=== PATIENT | male | born 1965 | race Caucasian/White ===

== ENCOUNTER → 2018-07-04 14:52 | Outpatient (CLI) | payer MEDICAID, SELFPAY ==
[2018-07-04 15:37] LABS: Anion Gap 15.2 mEq/L (5-15); Blood Urea Nitrogen 20 mg/dL (7-18); Carbon Dioxide 24 mmol/L (21.0-32.0); Chloride 102 mmol/L (98-107); Creatinine,Serum 1.16 mg/dL (0.70-1.30); Estimated Glomerular Filt Rate 66 ml/min (>60); Free T4 (Free Thyroxine) 0.94 ng/dl (0.76-1.46); GFR (African American) 80 ML/MIN (>60); Glucose 126 mg/dL (74-106); Potassium 4.2 mmoL/L (3.5-5.1); Sodium 137 mmol/L (136-145)
[2018-07-04 15:38] LABS: Hemoglobin A1C 5.5 % (0.0-7.0)
== END ==
PROVIDERS: Visit Provider Emergency Medicine
DX: Z87.898 Personal history of other specified conditions (principal)
CPT/HCPCS: 80048; 83036; 84439; 84443

== ENCOUNTER → 2018-07-06 11:21 | Outpatient (CLI) | payer MEDICAID, SELFPAY ==
--- NOTE | 2018-07-06 11:23 | NM_ITS ---
History and Indications: Diabetes, tobacco use, family history, chest pain, shortness of breath and syncope Procedure: Agent exercised on Arvin protocol 9 minutes and 31 seconds, resting heart rate was 73 bpm resting pressure 125/82, with exercise maximum heart rate achieved was 1 minute which is equal to 85% of the maximum predicted heart rate and a blood pressure was 172/80. Test was started due to fatigue and shortness of breath patient denied any complained of chest pain. Patient has good exercise capacity achieved 10.1METS of workload on treadmill, the blood pressure response to exercise was adequate. Electrocardiogram: Single electrocardiogram showed sinus rhythm, with exercise there is less than 1.[address] segment depression noted from the baseline EKG, occasional premature ventricular complex present. The EKG portion of the exercise Myoview is negative for ischemia. Cardiac stress and resting SPECT images: Cardiac stress and resting SPECT images were obtained using technetium 99 Myoview 31.1 mCi stress and the 10.5 mCi at rest. Gated SPECT further analysis of segmental wall motion and calculation of the ejection fraction also done. Cardiac stress and rest SPECT images show activity without segmental perfusion abnormality, computer derived ejection fraction is 66% with no regional wall motion abnormality, right ventricle is normal size and contractility. Conclusion: 1. The EKG portion of the exercise Myoview is negative for ischemia, patient has good exercise capacity achieved 10.1mets of workload on treadmill, the blood pressure response to exercise was adequate, there was no exercise-induced chest discomfort. 2. No scintigraphic evidence of reversible ischemia seen, computer derived ejection fraction is 66% with no regional wall motion abnormality, right ventricle is normal size and contractility. 3. Normal exercise Myoview study.
== END ==
PROVIDERS: PCP Emergency Medicine; Visit Provider Emergency Medicine
DX: R07.9 Chest pain, unspecified (principal)
CPT/HCPCS: 78452; 93017; A9502

== ENCOUNTER 2021-01-17 10:44 | Emergency (ER) | payer OTHER, SELFPAY ==
[2021-01-17 10:45] VITALS: BP 120/85; PULSE 102; RESP 18; TEMP 36.9; O2SAT 97; BMI 26.5
[2021-01-17 12:15] VITALS: BP 134/71; PULSE 76; RESP 18; TEMP 36.8; O2SAT 98
--- NOTE | 2021-01-17 12:27 | HMH.EDUTC ---
[facility] [place] Disposition Clinical Impression: Diarrhea Qualifiers: Diarrhea type: unspecified type Qualified Code(s): R19.7 - Diarrhea, unspecified Disposition: Home, Self-Care Condition on Discharge: Good Instructions: DI for Diarrhea and Traveler's Diarrhea -- Adult Additional Instructions: You have been tested for COVID19. Please isolate yourself as if you are positive until test results received. Tylenol and Motrin for body aches. Clear liquids, bland diet for diarrhea. Prescriptions: Promethazine HCl 12.5 mg PO TID 5 Days #10 tab Transmission Status: Pending to [facility] [employer] #[id number] Referrals: Humera Duran [Primary Care Provider] - Time of Disposition: 12:33 Medical Decision Making - Polo Inquiry Pt receiving controlled substance: No Vital Signs: 01/17/21 10:45 Temperature 98.4 F Temperature Source Oral Pulse Rate [Right] 102 H Respiratory Rate 18 Blood Pressure [Right Arm] 120/85 Blood Pressure Mean [Right Arm] 96 02 Sat by Pulse Oximetry 97 Oxygen Delivery Method Room Air Orders (Tests/Meds): ORDERS Category Date Time Status Covid-19 Nasal PCR ([facility]) Routine Lab 01/17/21 11:56 Received [facility] [place] HPI - General Stated complaint: body aches,diarrhea Time Seen by Provider: 01/17/21 12:27 Mode of Arrival: Family Vehicle Source of Information: Patient Limitations: No Limitations Description of Symptoms (Recalled from Triage Doc. by RN): Patient c/o dairrhea, chills, body aches, dizziness and general mylagia. patient since yesterday. Patient denies fevers, N/V. Pt denies any known COVID exposure. HEENT Symptoms (Recalled from RN notes): No Resp Symptoms (Recalled from RN notes): No Skin Symptoms (Recalled from RN notes): No MS Symptoms (Recalled from RN notes): Yes (GENERAL MYLAGIA) Functional Status (Recalled from RN notes): na - History of Present Illness Provider Complaint: Dizziness, body aches, chills, diarrhea X 1 day. No fever. Denies congestion, ear pain, sore throat. No loss of taste or smell. No nausea or vomiting. No known COVID19 exposure Onset (ago): day(s) (1) Relieving factors: none Exacerbating factors: none Treatments prior to arrival: none - Related Data Home Medications Medication Instructions Recorded Confirmed omeprazole magnesium 20 mg 20 mg PO DAILY 07/04/18 07/10/19 tablet,delayed release Previous Rx's Medication Instructions Recorded Promethazine HCl 12.5 mg PO TID 5 Days #10 tab 01/17/21 Allergies Allergy/AdvReac Type Severity Reaction Status Date / Time No Known Allergies Allergy Verified 07/10/19 09:06 - Worker's Comp Is this a Worker's Comp case?: No Is this an [facility] Worker's Comp?: No Is this a [place] Worker's Comp?: No [facility] History - Hepatitis A Screen Drug use history?: No High risk sexual behaviors?: No History of sexually transmitted infection?: No Currently employed?: No Childcare worker?: No Do you have indoor plumbing?: Yes Do you have electricity?: Yes Attestation statement:: This patient has been screened for Hepatitis A risk factors. I have reviewed the patient's past medical history: Yes Medical History: Reports:: Anxiety, Gastroesophageal Reflux Disease(GERD) Denies:: Cancer, Diabetes Mellitus Type 1, Diabetes Mellitus Type 2, Internal Pacemaker, Lung Disease, MRSA, Seizures Laterality Cases: Left: Arthroscopy Knee Other Surgeries: Yes: Colonoscopy, Other. No: Pacemaker Amputation: No Fractures: Yes Comment: right hand, lt knee - Social History Smoking Status: Current some day smoker # Packs/Day (cigarettes): 1 Alcohol Intake: never Alcohol Intake Frequency:: a few times a week Substance Use Type: denies use Occupational Status: employed Housing: house Household Members: spouse - Psychiatric History Pschychiatric History:: Reports:: Anxiety Family Hx:: Diabetes, Stroke, Hyperlipidemia ROS Obtained: Yes All systems reviewed & no additional complaints - Constitutional Constitutional: Rep
== END 2021-01-17 12:37 | disposition home or self-care (01) ==
PROVIDERS: Emergency Provider Physician Assistant; PCP Nurse Practitioner Family
DX: R19.7 Diarrhea, unspecified (principal); R42 Dizziness and giddiness; K21.9 Gastro-esophageal reflux disease without esophagitis; F41.9 Anxiety disorder, unspecified
CPT/HCPCS: 99202; G0463; U0003

== ENCOUNTER 2021-02-09 08:00 | Outpatient (RCR) | payer OTHER, SELFPAY | END 2021-03-24 15:00 | disposition home or self-care (01) | LOC: PT.CARL 08:00 | PROVIDERS: PCP Nurse Practitioner Family; Visit Provider Nurse Practitioner Family | DX: R42 Dizziness and giddiness (principal) | CPT/HCPCS: 97110; 97140; 97163 ==

== ENCOUNTER → 2021-02-17 07:13 | Day surgery (SDC) | payer OTHER, SELFPAY ==
--- NOTE | 2021-02-17 09:56 | HMH.TILT ---
Findings:: PROCEDURE: Upright Tilt Table Test REQUESTING PHYSICIAN: Courtney Key APRN INDICATION: Recurrent vertigo, dizziness BETA BLOCKERS: None PRE-TEST VITAL SIGNS: (supine position) HR 71 and regular, BP 138/70, O2sat 99% PROCEDURE SUMMARY: Patient was prepped per protocol, IV started, connected to heart, blood pressure and sat monitors, and safety strap applied. He was then tilted upright at 70 degrees for a total of 35 minutes. He denied any symptoms and had only minimal fluctuations in heart rate and blood pressure during the test. Minimum HR was 68 bpm, recorded 5 minutes after tilted upright and the maximum was 81 bpm, recorded after 15 minutes upright. Heart rhythm was normal sinus throughout. Minimum SBP was 126 mmHg, occurring after 25 minutes upright, and the maximum SBP was 136, occurring after 15 minutes upright. Minumum DBP was 92 mmHg after 5 minutes upright and the maximum DBP was 101 after 30 minutes upright. O2 sats were in the high-90s throughout. CONCLUSIONS: Unremarkable upright tilt table test. Incidental finding of elevated diastolic blood pressure when in the upright position.
== END ==
PROVIDERS: PCP Nurse Practitioner Family; Visit Provider Nurse Practitioner Family
DX: R42 Dizziness and giddiness (principal); I45.10 Unspecified right bundle-branch block; R94.31 Abnormal electrocardiogram [ECG] [EKG]
CPT/HCPCS: 93660

== ENCOUNTER → 2021-02-19 08:30 | Outpatient (CLI) | payer OTHER, SELFPAY ==
--- NOTE | 2021-02-19 08:30 | MR_ITS ---
PROCEDURE: MR ANGIO HEAD WO CON CLINICAL INDICATION: dizziness, eval posterior circulation COMPARISON: No exams were available for comparison TECHNIQUE: 3D [id number] images obtained without contrast with multi slab reformats FINDINGS: The posterior circulation has an unremarkable appearance. Vertebral arteries and basilar artery has an unremarkable appearance. No aneurysm.. The anterior circulation also has an unremarkable appearance without evidence of aneurysm. No AVM apparent. The no areas of dissection. No major intracranial occlusive process apparent IMPRESSION: Negative MRA of the brain Dictated by: Nicolas Camargo MD 02/19/2021 15:34 Nicolas Camargo MD in [place] 02/19/2021 15:34
== END ==
PROVIDERS: PCP Nurse Practitioner Family; Visit Provider Nurse Practitioner Family
DX: R42 Dizziness and giddiness (principal)
CPT/HCPCS: 70544

== ENCOUNTER → 2021-02-24 09:25 | Outpatient (CLI) | payer OTHER, SELFPAY ==
--- NOTE | 2021-02-24 09:35 | XR_ITS ---
PROCEDURE: XR CERVICAL SPINE W FLEX/EXT CLINICAL INDICATION: neck pain, brisk reflexes COMPARISON: No exams were available for comparison FINDINGS: There is normal alignment. There is reversal of the upper cervical lordosis. There is slight decrease in the disc space at C4-C5. Nuchal ligament calcifications are present posteriorly at the C5 level. There is some minimal anterior longitudinal ligament calcification also noted. No acute fracture or dislocation. No lytic or blastic change. Minimal foraminal narrowing bilaterally at C4-C5. No cervical rib. Flexion and extension views show no abnormal subluxation. IMPRESSION: Mild degenerative disc disease at C4-C5 with minimal bilateral foraminal narrowing. Reversal cervical lordosis which may be due to patient positioning or muscle spasm No abnormal subluxation in flexion or extension Dictated by: Nicolas Camargo MD 02/24/2021 14:47 Nicolas Camargo MD in [place] 02/24/2021 14:47
[2021-02-24 09:43] LABS: Basophils % 0.6 % (0.1-2.0); Eosinophils # 0.2 K/mm3 (0.0-0.4); Eosinophils % 2.7 % (0.1-12.0); Hematocrit 44.8 % (42.0-52.0); Hemoglobin 15.1 g/dL (14.1-18.0); Lymphocytes # 1.7 K/mm3 (0.7-4.5); Lymphocytes % 25.4 % (10-50); Mean Corpuscular HGB Conc 33.7 g/dL (31.8-35.4); Mean Corpuscular Hemoglobin 30.8 pg (27.0-31.2); Mean Corpuscular Volume 91.3 fl (80-94); Mean Platelet Volume 7.9 fl (7.4-10.4); Monocytes # 0.4 K/mm3 (0.1-1.0); Monocytes % 6.6 % (1.7-9.3); Neutrophils # 4.3 K/mm3 (1.8-7.8); Neutrophils % 64.7 % (37.0-80.0); Platelet Count 214 K/mm3 (142-424); Red Blood Count 4.91 M/mm3 (4.60-6.20); Red Cell Distribution Width 12.6 % (11.5-17.5); White Blood Count 6.6 K/mm3 (4.8-10.8)
--- NOTE | 2021-02-24 10:09 | ECG_ITS ---
APPROVED REPORT Exam: Resting ECG HR:69 bpm ECG Measurements Heart Rate 69 AXES OR 134 P 37 QRSd 126 QRS 27 QT 382 T 14 QTc 409 Conclusion Normal sinus rhythm Right bundle branch block Abnormal ECG Electronically signed by : Cralos Hodge MD 02/24/2021 17:43:17
[2021-02-24 10:45] LABS: Alanine Aminotransferase 26 U/L (12-78); Albumin/Globulin Ratio 1.5 (1.1-1.8); Alkaline Phosphatase 81 U/L (38-126); Anion Gap 13.5 mEq/L (5-15); Aspartate Amino Transferase 23 U/L (17-59); Bilirubin,Total 0.2 mg/dl (0.2-1.3); Blood Urea Nitrogen 15 mg/dl (9-20); Calcium 8.9 mg/dl (8.4-10.2); Carbon Dioxide 25 mmol/L (22.0-30.0); Chloride 108 mmol/L (98-107); Estimated Glomerular Filt Rate 78 ml/min (>60); GFR (African American) 94 ML/MIN (>60); Globulin 2.6 g/dL (1.3-3.2); Glucose 114 mg/dl (74-100); Potassium 4.5 mmoL/L (3.5-5.1); Sodium 142 mmol/L (136-145); Total Protein,Serum 6.6 g/dl (6.3-8.2)
[2021-02-24 11:17] LABS: Thyroid Stimulating Hormone 0.07 uIU/mL (0.465-4.68)
[2021-02-24 11:51] LABS: Vitamin B12 356 pg/mL (239-931)
== END ==
PROVIDERS: Visit Provider Nurse Practitioner Family
DX: R42 Dizziness and giddiness (principal); M54.2 Cervicalgia; R29.2 Abnormal reflex
CPT/HCPCS: 36415; 72052; 80053; 82607; 82746; 84443; 85025; 93005

== ENCOUNTER → 2021-03-10 08:35 | Outpatient (CLI) | payer OTHER, SELFPAY ==
[2021-03-10 10:30] LABS: Free Thyroxine Index 2.1 ug/dL (5.93-13.13); T4 (Thyroxine) 6.7 ug/dl (5.53-11.0); Triiodothryronine (T3) Uptake 32 % (23.5-40.5)
[2021-03-10 10:44] LABS: Thyroid Stimulating Hormone 0.29 uIU/mL (0.465-4.68)
[2021-03-10 10:45] LABS: Hemoglobin A1C 5.4 % (4.0-6.0)
[2021-03-11 05:15] LABS: Homocyst(e)ine 15.4 umol/L (0.0-14.5)
[2021-03-16 16:18] LABS: Methylmalonic Acid 120 nmol/L (0-378)
== END ==
PROVIDERS: PCP Nurse Practitioner Family; Visit Provider Nurse Practitioner Family
DX: R42 Dizziness and giddiness (principal); R29.2 Abnormal reflex; R73.9 Hyperglycemia, unspecified; I45.4 Nonspecific intraventricular block; R79.89 Other specified abnormal findings of blood chemistry
CPT/HCPCS: 36415; 82131; 83036; 83090; 84436; 84443; 84479; 93270

== ENCOUNTER → 2021-03-19 08:31 | Outpatient (CLI) | payer OTHER, SELFPAY ==
--- NOTE | 2021-03-19 08:31 | CA_ITS ---
APPROVED REPORT Performance Improvement Specialist: STEPHEN Laterality: Bilateral Indications: dizziness Risk Factors Smoking Doppler Spectral Velocity Analysis ECA (R) 75.80/14.10 cm/s ECA (L) 76.30/18.00 cm/s dICA (R) 66.80/25.00 cm/s dICA (L) 57.10/24.40 cm/s Jojo (R) 61.60/28.30 cm/s Jojo (L) 60.40/21.80 cm/s pICA (R) 60.40/24.40 cm/s pICA (L) 62.30/26.30 cm/s dCCA (R) 80.50/24.00 cm/s dCCA (L) 70.30/16.30 cm/s pCCA (R) 90.90/24.80 cm/s pCCA (L) 105.90/23.50 cm/s Vert (R) 41.70/14.10 cm/s Vert (L) 49.40/19.90 cm/s ICA/CCA 0.83 ICA/CCA 0.89 Findings Duplex evaluation demonstrates stenosis of the right proximal internal carotid artery <20% Duplex evaluation demonstrates stenosis of the left proximal internal carotid artery <20%. Conclusion Duplex evaluation demonstrates stenosis of the right proximal internal carotid artery <20% Duplex evaluation demonstrates stenosis of the left proximal internal carotid artery <20%. Electronically signed by : Nicolas Camargo MD 03/19/2021 15:59:29
--- NOTE | 2021-03-19 08:31 | CA_ITS ---
APPROVED REPORT EXAM: Comprehensive 2D, Doppler, and color-flow Echocardiogram Industrial Relations Specialist: Nuris Moore CRT Ht: 5 ft 10 in Wt: 187lbs BSA: 2.03 BP: 139/83 mmHg Indications: DIZZINESS, RBBB, GERD, SMOKING 2D Dimensions LVOT 1.99 cm (M/F) 1.5-2.5 LA Volume 30.60 mL LA Volume Index 15.10 mL/m2 (M/F) 16-34 M-Mode Dimensions RVDd 3.04 cm (0.9-2.6) LA Diam 3.54 cm (1.9-4.0) LVDd 5.04 cm (3.5-5.7) Ao Diam 3.79 cm (2.0-3.7) LVDs 2.93 cm (3.5-5.7) IVSd 0.75 cm (0.6-1.1) PWd 0.82 cm (0.6-1.1) EF (Teich) 72.60% FS 41.90% EDV (Teich) 120.50 mL TAPSE 1.78 (<1.7) ESV (Teich) 33.00 mL LV Diastology E Decel Time 253.00 (160-240 msec) E/A Ratio 0.72 MED E' 4.70 (< 7 cm/sec) MED A' 9.20 cm/s E'/MED E' Ratio 10.34 (>14) LAT E' 6.20 (<10 cm/sec) LAT A' 7.80 cm/s E/LAT E' Ratio 7.84 (>14) Aortic Valve AO Peak GR. 7.40 mmHg Mitral Valve MV E Max Anibal. 49.00 (40-130 cm/s) MV A Velocity 68.00 (40-130 cm/s) E/A Ratio 0.72 MV Decel. Time 253.00 (160-240 ms) MV PHT 74.00 ms Pulmonary Valve PV Peak Velocity 67.00 (50-150 cm/s) Tricuspid Valve TR P. Velocity 206.00 cm/s RAP Estimate 10.00 mmHg RVSP 27.00 mmHg Left Ventricle Left atrium is mildly enlarged, left ventricle is normal size, mild concentric left ventricular hypertrophy, visually estimated ejection fraction 55% with no regional wall motion abnormality, grade 1 diastolic dysfunction seen without tissue Doppler evidence of raise left atrial pressure. Right Ventricle Right atrium and right ventricle mildly enlarged with normal contractility. Aortic Valve Aortic valve is minimally thickened and fibrosed, there is no aortic stenosis or aortic insufficiency. Mitral Valve Mitral valve is grossly normal, there is trace mitral regurgitation. Tricuspid Valve Tricuspid grossly normal, there is trace tricuspid regurgitation, tricuspid regurgitation jet velocity is inadequate for calculation of the right ventricular systolic pressure. Pulmonic Valve Pulmonic valve is poorly visualized. Great Vessels Aortic root is normal size. Inferior vena cava is not well visualized. Pericardium No significant pericardial effusion noted. Conclusion 1. Mild biatrial enlargement, normal left ventricular size, mild concentric left ventricular hypertrophy, visually estimated ejection fraction 55% with no regional wall motion abnormality, grade 1 diastolic dysfunction seen without tissue Doppler evidence of raise left atrial pressure. 2. Mildly enlarged right ventricle with normal contractility. 3. Trace mitral and tricuspid regurgitation. 4. No significant pericardial effusion noted. Electronically signed by : Addi Jones MD 03/19/2021 14:16:57
--- NOTE | 2021-03-19 08:33 | MR_ITS ---
PROCEDURE: MR HEAD/BRAIN WO CON CLINICAL INDICATION: abnormal movement disorder Dizziness COMPARISON: No exams were available for comparison TECHNIQUE: Routine multiplanar multi echo sequences are performed without gadolinium enhancement. FINDINGS: No midline shift, mass effect, intracranial hemorrhage, or hydrocephalus is evident. The cerebellopontine angles, cerebellum, brainstem and mid brain have an unremarkable appearance. No acute infarction. The pituitary, optic chiasm, corpus callosum, and craniocervical junction have an unremarkable appearance. Minimal amount of fluid in the mastoid sinuses. No paranasal sinus air-fluid level. IMPRESSION: No acute intracranial findings. Minimal mastoid sinus disease Dictated by: Nicolas Camargo MD 03/19/2021 16:43 Nicolas Camargo MD in [place] 03/19/2021 16:43
== END ==
PROVIDERS: PCP Nurse Practitioner Family; Visit Provider Nurse Practitioner Family
DX: R42 Dizziness and giddiness (principal); I45.10 Unspecified right bundle-branch block; R94.31 Abnormal electrocardiogram [ECG] [EKG]; R09.89 Other specified symptoms and signs involving the circulatory and respiratory systems; R29.2 Abnormal reflex; F17.200 Nicotine dependence, unspecified, uncomplicated
CPT/HCPCS: 70551; 93306; 93880

== ENCOUNTER → 2022-01-27 09:02 | Outpatient (CLI) | payer OTHER, SELFPAY ==
[2022-01-27 14:52] LABS: Basophils # 0.1 K/mm3 (0-0.2); Eosinophils # 0.2 K/mm3 (0.0-0.4); Eosinophils % 3.4 % (0.1-12.0); Hematocrit 46.9 % (42.0-52.0); Hemoglobin 15.1 g/dL (14.1-18.0); Lymphocytes # 1.3 K/mm3 (0.7-4.5); Lymphocytes % 22.3 % (10-50); Mean Corpuscular HGB Conc 32.3 g/dL (31.8-35.4); Mean Corpuscular Hemoglobin 30.8 pg (27.0-31.2); Mean Corpuscular Volume 95.5 fl (80-94); Mean Platelet Volume 9.3 fl (7.4-10.4); Monocytes # 0.5 K/mm3 (0.1-1.0); Monocytes % 7.7 % (1.7-9.3); Neutrophils # 3.9 K/mm3 (1.8-7.8); Neutrophils % 65.5 % (37.0-80.0); Platelet Count 197 K/mm3 (142-424); Red Blood Count 4.91 M/mm3 (4.60-6.20); White Blood Count 5.9 K/mm3 (4.8-10.8)
[2022-01-27 14:53] LABS: Alanine Aminotransferase 28 U/L (12-78); Albumin Level 4.1 g/dl (3.5-5.0); Albumin/Globulin Ratio 1.5 (1.1-1.8); Alkaline Phosphatase 96 U/L (38-126); Anion Gap 9.2 mEq/L (5-15); Aspartate Amino Transferase 27 U/L (17-59); Bilirubin,Total 0.2 mg/dl (0.2-1.3); Blood Urea Nitrogen 20 mg/dl (9-20); Calcium 9.3 mg/dl (8.4-10.2); Carbon Dioxide 29 mmol/L (22.0-30.0); Chloride 105 mmol/L (98-107); Cholesterol 170 mg/dl (140-200); Estimated Glomerular Filt Rate 69 ml/min (>60); GFR (African American) 84 ML/MIN (>60); Globulin 2.8 g/dL (1.3-3.2); Glucose 122 mg/dl (74-100); HDL Cholesterol 34 mg/dl (40-60); Potassium 4.2 mmoL/L (3.5-5.1); Sodium 139 mmol/L (136-145); Total Protein,Serum 6.9 g/dl (6.3-8.2); Triglycerides 285 mg/dl (30-150); VLDL Cholesterol 57 mg/dL (0-40)
[2022-01-27 15:07] LABS: Free T4 (Free Thyroxine) 0.63 ng/dl (0.78-2.19)
[2022-01-27 15:13] LABS: Hemoglobin A1C 5.3 % (4.0-6.0)
[2022-01-27 15:22] LABS: Thyroid Stimulating Hormone 7.38 uIU/mL (0.465-4.68)
[2022-01-28 08:18] LABS: Triiodothyronine (T3) Total 102 ng/dL (71-180)
[2022-01-29 07:15] LABS: Direct LDL Cholesterol 79 mg/dL (100-129)
== END ==
PROVIDERS: Clinical Nurse Specialist Adult Health; PCP Family Medicine; Visit Provider Family Medicine
DX: Z00.00 Encounter for general adult medical examination without abnormal findings (principal); I10 Essential (primary) hypertension; E05.00 Thyrotoxicosis with diffuse goiter without thyrotoxic crisis or storm; R73.9 Hyperglycemia, unspecified
CPT/HCPCS: 36415; 80053; 80061; 83036; 84439; 84443; 84480; 85025

== ENCOUNTER 2022-02-24 09:00 | Outpatient (RCR) | payer OTHER, SELFPAY | END 2022-04-11 10:43 | disposition home or self-care (01) | LOC: PT.CARL 09:00 | PROVIDERS: PCP Family Medicine; Visit Provider Orthopaedic Surgery Adult Reconstructive Orthopaedic Surgery | DX: S46.011A Strain of muscle(s) and tendon(s) of the rotator cuff of right shoulder, initial encounter (principal) | CPT/HCPCS: 97010; 97014; 97033; 97035; 97110; 97163; G0283 ==

== ENCOUNTER → 2022-10-05 19:07 | Outpatient (CLI) | payer OTHER, SELFPAY ==
[2022-10-05 17:13] LABS: Basophils # 0.1 K/mm3 (0-0.2); Basophils % 0.8 % (0.1-2.0); Eosinophils # 0.2 K/mm3 (0.0-0.4); Eosinophils % 3.2 % (0.1-12.0); Hematocrit 47.2 % (42.0-52.0); Hemoglobin 15.6 g/dL (14.1-18.0); Lymphocytes # 1.5 K/mm3 (0.7-4.5); Lymphocytes % 24.7 % (10-50); Mean Corpuscular Hemoglobin 29.6 pg (27.0-31.2); Mean Corpuscular Volume 89.9 fl (80-94); Mean Platelet Volume 9.6 fl (7.4-10.4); Monocytes # 0.5 K/mm3 (0.1-1.0); Monocytes % 7.9 % (1.7-9.3); Neutrophils # 3.9 K/mm3 (1.8-7.8); Neutrophils % 63.4 % (37.0-80.0); Platelet Count 213 K/mm3 (142-424); Red Blood Count 5.25 M/mm3 (4.60-6.20); Red Cell Distribution Width 12.4 % (11.5-17.5); White Blood Count 6.2 K/mm3 (4.8-10.8)
[2022-10-05 17:20] LABS: Chloride 104 mmol/L (98-107); Sodium 140 mmol/L (136-145)
[2022-10-05 17:21] LABS: Potassium 4.6 mmoL/L (3.5-5.1)
[2022-10-05 17:23] LABS: Blood Urea Nitrogen 20 mg/dl (9-20); Estimated Glomerular Filt Rate 100 ml/min (>60); GFR (African American) 121 ML/MIN (>60)
[2022-10-05 17:24] LABS: Anion Gap 13.6 mEq/L (5-15); Carbon Dioxide 27 mmol/L (22.0-30.0); Glucose 120 mg/dl (74-100)
[2022-10-05 17:41] LABS: T4 (Thyroxine) 7.2 ug/dl (5.53-11.0)
[2022-10-05 17:54] LABS: Thyroid Stimulating Hormone < 0.02 uIU/mL (0.465-4.68)
[2022-10-06 12:08] LABS: Hemoglobin A1C 7.5 % (4.0-6.0)
== END ==
PROVIDERS: PCP Family Medicine; Visit Provider Family Medicine
DX: R42 Dizziness and giddiness (principal); E05.00 Thyrotoxicosis with diffuse goiter without thyrotoxic crisis or storm; R73.9 Hyperglycemia, unspecified
CPT/HCPCS: 80048; 83036; 84436; 84443; 85025

== ENCOUNTER → 2022-10-25 18:15 | Outpatient (CLI) | payer OTHER, SELFPAY ==
[2022-10-25 17:30] LABS: Hemoglobin A1C 5.2 % (4.0-6.0)
== END ==
PROVIDERS: PCP Family Medicine; Visit Provider Family Medicine
DX: R73.09 Other abnormal glucose (principal)
CPT/HCPCS: 83036

== ENCOUNTER 2023-08-09 20:10 | Outpatient (CLI) | payer OTHER, SELFPAY ==
[2023-08-09 16:50] LABS: Basophils % 0.3 % (0.1-2.0); Eosinophils # 0.2 K/mm3 (0.0-0.4); Hematocrit 48.5 % (42.0-52.0); Hemoglobin 16.6 g/dL (14.1-18.0); Lymphocytes # 1.9 K/mm3 (0.7-4.5); Lymphocytes % 22.9 % (10-50); Mean Corpuscular HGB Conc 34.3 g/dL (31.8-35.4); Mean Corpuscular Hemoglobin 31.1 pg (27.0-31.2); Mean Corpuscular Volume 90.6 fl (80-94); Mean Platelet Volume 9.6 fl (7.4-10.4); Monocytes # 0.5 K/mm3 (0.1-1.0); Monocytes % 6.3 % (1.7-9.3); Neutrophils # 5.6 K/mm3 (1.8-7.8); Neutrophils % 68.5 % (37.0-80.0); Platelet Count 216 K/mm3 (142-424); Red Blood Count 5.35 M/mm3 (4.60-6.20); Red Cell Distribution Width 12.8 % (11.5-17.5); White Blood Count 8.2 K/mm3 (4.8-10.8)
[2023-08-09 16:56] LABS: Alanine Aminotransferase 29 U/L (12-78); Albumin Level 4.5 g/dl (3.5-5.0); Albumin/Globulin Ratio 1.6 (1.1-1.8); Alkaline Phosphatase 86 U/L (38-126); Aspartate Amino Transferase 30 U/L (17-59); Bilirubin,Total 0.4 mg/dl (0.2-1.3); Blood Urea Nitrogen 18 mg/dl (9-20); Calcium 9.5 mg/dl (8.4-10.2); Carbon Dioxide 26 mmol/L (22.0-30.0); Chol/HDL Ratio 5.4 (1-3.5); Cholesterol 195 mg/dl (140-200); Estimated Glomerular Filt Rate 63 ml/min (>60); GFR (African American) 76 ML/MIN (>60); Globulin 2.8 g/dL (1.3-3.2); Glucose 115 mg/dl (74-100); HDL Cholesterol 36 mg/dl (40-60); Potassium 4.9 mmoL/L (3.5-5.1); Sodium 139 mmol/L (136-145); Total Protein,Serum 7.3 g/dl (6.3-8.2); Triglycerides 152 mg/dl (30-150); VLDL Cholesterol 30 mg/dL (0-40)
[2023-08-09 17:07] LABS: Direct LDL Cholesterol 119.82 mg/dL (100-129)
[2023-08-09 17:27] LABS: Thyroid Stimulating Hormone 3.01 uIU/mL (0.465-4.68)
[2023-08-09 18:18] LABS: Anion Gap 10.9 mEq/L (5-15); Chloride 107 mmol/L (98-107)
[2023-08-10 10:02] LABS: Hemoglobin A1C 5.5 % (4.0-6.0)
== END 2023-08-09 23:59 ==
LOC: LAB.DROPOF 20:10
PROVIDERS: PCP Family Medicine; Visit Provider Family Medicine
DX: E05.00 Thyrotoxicosis with diffuse goiter without thyrotoxic crisis or storm (principal); R73.9 Hyperglycemia, unspecified
CPT/HCPCS: 80053; 80061; 83036; 84443; 85025

== ENCOUNTER 2024-04-18 13:20 | Outpatient (CLI) | payer OTHER, SELFPAY ==
[2024-04-18 16:43] LABS: Alanine Aminotransferase 34 U/L (12-78); Albumin Level 4.2 g/dl (3.5-5.0); Albumin/Globulin Ratio 1.6 (1.1-1.8); Alkaline Phosphatase 69 U/L (38-126); Anion Gap 10.3 mEq/L (5-15); Aspartate Amino Transferase 27 U/L (17-59); Bilirubin,Total 0.7 mg/dl (0.2-1.3); Blood Urea Nitrogen 22 mg/dl (9-20); Calcium 9.3 mg/dl (8.4-10.2); Carbon Dioxide 29 mmol/L (22.0-30.0); Chloride 99 mmol/L (98-107); Estimated Glomerular Filt Rate 69 ml/min (>60); GFR (African American) 83 ML/MIN (>60); Globulin 2.7 g/dL (1.3-3.2); Glucose 231 mg/dl (74-100); Potassium 4.3 mmoL/L (3.5-5.1); Sodium 134 mmol/L (136-145); Total Protein,Serum 6.9 g/dl (6.3-8.2)
[2024-04-18 16:45] LABS: Basophils # 0.1 K/mm3 (0-0.2); Basophils % 0.4 % (0.1-2.0); Eosinophils % 0.1 % (0.1-12.0); Hematocrit 45.2 % (42.0-52.0); Lymphocytes # 0.9 K/mm3 (0.7-4.5); Lymphocytes % 6.8 % (10-50); Mean Corpuscular HGB Conc 35.4 g/dL (31.8-35.4); Mean Corpuscular Hemoglobin 31.4 pg (27.0-31.2); Mean Corpuscular Volume 88.6 fl (80-94); Mean Platelet Volume 7.9 fl (7.4-10.4); Monocytes # 0.3 K/mm3 (0.1-1.0); Monocytes % 2.5 % (1.7-9.3); Neutrophils # 11.4 K/mm3 (1.8-7.8); Neutrophils % 90.1 % (37.0-80.0); Platelet Count 220 K/mm3 (142-424); Red Cell Distribution Width 12.9 % (11.5-17.5); White Blood Count 12.7 K/mm3 (4.8-10.8)
[2024-04-18 16:49] LABS: MANUAL DIFFERENTIAL MANUAL DIFFERENTIAL (MANUAL DIFF)
[2024-04-18 17:11] LABS: Lymphocytes % 6 % (10-50); Monocytes % 2 % (2-9); Neutrophils % 92 % (42-76); Total Cells Counted 100
[2024-04-18 17:12] LABS: Anisocytosis 1+; Burr Cells 1+; Hypochromasia 2+; Macrocytosis 1+; Microcytosis 1+; Poikilocytosis 1+; Polychromasia 1+; Stomatocytes 1+; Target Cells 1+
[2024-04-18 17:13] LABS: Platelet Estimate Normal
[2024-04-19 12:58] LABS: Hemoglobin A1C 5.5 % (4.0-6.0)
== END 2024-04-18 23:59 | disposition home or self-care (01) ==
LOC: LAB.DROPOF 04-19 12:34
PROVIDERS: PCP Family Medicine; Visit Provider Family Medicine
DX: M25.529 Pain in unspecified elbow (principal); R73.09 Other abnormal glucose
CPT/HCPCS: 80053; 83036; 85007; 85025; 85027

== ENCOUNTER 2025-01-22 10:15 | Outpatient (CLI) | payer OTHER, SELFPAY ==
[2025-01-22 16:26] LABS: Hematocrit 43.2 % (42.0-52.0); Hemoglobin 15.0 g/dL (14.1-18.0); Immature Granulocytes % 0.5 %; Mean Corpuscular HGB Conc 34.7 g/dL (31.8-35.4); Mean Corpuscular Hemoglobin 31.8 pg (27.0-31.2); Mean Corpuscular Volume 91.7 fl (80-94); Nucleated Red Blood Cells % 0 %; Platelet Count 186 K/mm3 (142-424); Red Blood Count 4.71 M/mm3 (4.60-6.20); Red Cell Distribution Width-SD 43.8 fL; White Blood Count 6.1 K/mm3 (4.8-10.8)
[2025-01-22 17:06] LABS: Albumin Level 4.0 g/dl (3.5-5.0); Chloride 102 mmol/L (98-107); Potassium 4.4 mmoL/L (3.5-5.1); Sodium 137 mmol/L (136-145)
[2025-01-22 17:09] LABS: Alanine Aminotransferase 31 U/L (12-78); Albumin/Globulin Ratio 1.2 (1.1-1.8); Alkaline Phosphatase 80 U/L (38-126); Anion Gap 12.4 mEq/L (5-15); Aspartate Amino Transferase 31 U/L (17-59); Bilirubin,Total 0.5 mg/dl (0.2-1.3); Blood Urea Nitrogen 19 mg/dl (9-20); Calcium 9.6 mg/dl (8.4-10.2); Carbon Dioxide 27 mmol/L (22.0-30.0); Cholesterol 175 mg/dl (140-200); Creatinine,Serum 0.90 mg/dl (0.66-1.25); Estimated Glomerular Filt Rate 87 ml/min (>60); GFR (African American) 105 ML/MIN (>60); Globulin 3.4 g/dL (1.3-3.2); Glucose 107 mg/dl (74-100); Total Protein,Serum 7.4 g/dl (6.3-8.2); Triglycerides 134 mg/dl (30-150)
[2025-01-22 17:10] LABS: HDL Cholesterol 37 mg/dl (40-60)
--- OUTSIDE RECORDS SUMMARY | 2025-01-23 11:55 | XMS_ITS | Clinical Summary ---
Author Organization [facility] Address [address] [id number] Care Team Providers Care Process Automation Engineer Name Role Phone Nikolai Luque MD Primary Care Provider Kristi vailable Allergies No known active allergies Medications omeprazole (PriLOSEC) [address] capsule 1 Active folic acid (Folvite) 1 MG tabletIndication s:Arthralgia of hand, unspecified laterality Take 1 tablet (1 mg) by mouth 1 (one) time each day. Take this medication daily. Do not stop if you are still prescribed Methotrexate. 90 tablet 3 4 Active methotrexate 2.5 MG tabletIndication s:Arthralgia of hand, unspecified laterality Take 4 tablets (10 mg total) by mouth 1 (one) time per week. 52 tablet 4 Active predniSONE (Deltasone) 10 MG tabletIndication s:Pain in unspecified joint Take 1 tablet (10 mg) by mouth 1 (one) time each day. 30 tablet 4 Active Active Problems Problem Noted Date Diagnosed Date Elevated blood pressure read ing without diagnosis of hypertension 08/16/2021 Shortness of breath 08/16/2021 Overview (08/16/2021): Noted after getting the COVID-19 vaccination. 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 Alcohol Use Standard Drinks/Week Comments Yes 0 (1 standard drink = 0.6 oz pur e alcohol) Social. PHQ-2 Answer Date Recorded Patient Health Questionnaire-2 Score 0 11/22/2023 Sex and Gender Information Value Date Recorded Sex Assigned at Not on file Legal Sex Male 10:31 PM EDT Gender Identity Not on file Sexual Orientation Not on file Last Filed Vital Signs Vital Sign Reading Time Taken Comments Blood Pressure 116/80 11/22/2023 1:01 PM EDT Pulse 63 11/22/2023 1:01 PM EDT Temperature 36.6 C (97.9 F) 11/22/2023 1:01 PM EDT Respiratory Rate 16 11/22/2023 1:01 PM EDT Oxygen Saturation 96% 11/22/2023 1:01 PM EDT Inhaled Oxygen Concentration - - Weight 83.6 kg (184 lb 4.9 oz) 11/22/2023 1:01 P M EDT Height 177.8 cm (5' 10 ) 11/22/2023 1:01 PM EDT Body Mass Index 26.44 11/22/2023 1:01 PM EDT Plan of Treatment Health Maintenance Due Date Last Done Comments [facility]-HIV Screening 1966 [facility]-Infant/Child/Adol SDOH Screenings 1966 [facility]- SDOH Screenings 1984 [facility]-Adult SDOH Screenings 1984 [facility]-DTaP,Tdap,and Td Vaccines (1 - Tdap) 1985 [facility]-Hepatitis B Vaccines (1 of 3 - 19+ 3-dose series) 1985 [facility]-Zoster Vaccines (1 of 2) 1985 CT Colonography 12/10/2011 Colonoscopy 12/10/2011 FIT-DNA 12/10/2011 FIT 12/10/2011 FOBT 12/10/2011 Sigmoidoscopy 12/10/2011 [facility]-Colorectal Cancer Screening 12/10/2011 [facility]-Pneumococcal Vaccine: 50+ Years (1 of 1 - PCV) 2016 [id number] Vaccine (2 - Pfizer risk series) 07/30/2021 07/09/2021 [facility]-Depression Screening 11/21/2024 11/22/2023 [facility]-Influenza Vaccine (#1) 2025 [facility]-Hepatitis C Screening Completed 09/20/2023 [facility]-Obesity Intervention Completed 024, 10/20/2023, 09/20/2023, Additional history exists HPV Vaccines Aged Out No longer eligi ble based on patient's age to complete this topic [facility]-HIB Vaccines Aged Out No longer e ligible based on patient's age to complete this topic [facility]-Hepatitis A Vaccines Aged Out No longer eligible based on patient's age to complete this topic [facility]-IPV Vaccines Aged Out No longer e ligible based on patient's age to complete this topic [facility]-Rotavirus Vaccines Aged Out No lo nger eligible based on patient's age to complete this topic Procedures Procedure Name Priority Date/Time Associated Diagnosis Comments ACUTE HEPATITIS PANEL Routine 09/20/2023 10:33 AM EDT Pain in unspecified joint from Last 3 Months or Most Recently Relevant to Health Maintenance Results * Acute Hepatitis Panel (09/20/2023 10:33 AM EDT) Hepatitis B Surf Antigen Negative Negative 09/20/2023 12:[address] [facility] Hepatitis C Antibody Negative Negative 09/20/2023 12:[address] [facility] Hepatitis A Antibody IgM Negative Negative 09/20/2023 12:[address] [facility] Hepatitis B Core Antibody IgM Negative Negative 09/20/2023 12:[address] [facility] Blood Venous blood specimen / Unknown Venipuncture / Unknown 09/20/2023 10:33 AM EDT 09/20/2023 10:34 AM EDT us Kadi Hernandez [employer] [facility] BLOOD ORDERABLES Final Result [facility] [address] [place] [address] from Last 3 Months or Most Recently Relevant to Health Maintenance Insurance Care Teams Process Automation Engineer Relationship Specialty Start Date End Date Nikolai Luque MD PCP - General Family Medicine 11/22/23
== END 2025-01-22 23:59 | disposition home or self-care (01) ==
LOC: LAB.DROPOF 01-23 11:51
PROVIDERS: PCP Family Medicine; Visit Provider Family Medicine
DX: M06.9 Rheumatoid arthritis, unspecified (principal)
CPT/HCPCS: 80053; 80061; 85025